=== PATIENT | female | born 1990 | race Caucasian/White ===

== ENCOUNTER 2019-05-17 03:45 | Emergency (ER) | payer OTHER ==
[~2019-05-17] VITALS: Ht 167.6 cm; Wt 54.4 kg
[2019-05-17 03:50] VITALS: BP_SYST 118
--- NOTE | 2019-05-17 03:55 | NUR ---
Patient to ER bed 5 to gown for evaluation. Side rails up. Report given to KWAME NAIDU.
--- NOTE | 2019-05-17 03:55 | NUR ---
Pt c/o burning sensation to [facility] after injecting Meth and Heroin to [facility] 3 days ago. Pt also c/o pain and swelling to [facility] s/p meth and heroin injection 5 days ago. No redness or lesions noted. Visible track arita to [facility] and A.
--- NOTE | 2019-05-17 04:30 | NUR ---
Dr. Ordonez at bedside to assess pt.
[2019-05-17] MEDS ORDERED: ceFAZolin SODIUM 1 GM VIAL IM ONE (04:45)
[2019-05-17 05:30] VITALS: BP_SYST 128
--- NOTE | 2019-05-17 05:30 | NUR ---
Patient given written and verbal discharge instructions and verbalizes understanding. ER MD discussed with patient the results and treatment provided. Patient in stable condition. ID arm band removed. Rx of Keflex given. Patient educated on pain management and to follow up with PMD. Pain Scale 1/10. Opportunity for questions provided and answered. Medication side effect fact sheet provided.
== END 2019-05-17 05:30 | disposition home or self-care (01) ==
LOC: SED 03:45
DX: L03.113 Cellulitis of right upper limb (principal); Z88.8 Allergy status to other drugs, medicaments and biological substances
CPT/HCPCS: 96372; 99283; J0690